=== PATIENT | female | born 1965 | race Caucasian/White ===

== ENCOUNTER 2016-12-19 12:17 | Emergency (ER) | payer MEDICAID ==
[~2016-12-19] VITALS: Ht 160 cm; Wt 90.7 kg
[2016-12-19 12:23] VITALS: BP 145/80
--- NOTE | 2016-12-19 14:30 | NUR ---
Patient ambulated to bed 07.
--- NOTE | 2016-12-19 14:32 | NUR ---
51F BIB SELF C/O RT SHOULDER PAIN, THROBBING, RADIATES TO RT HAND, 10/10 X LAST NIGHT; PT DENIES TRAUMA OR INJURY TO SITE; NO SWELLING OR DEFORMITIES NOTED TO SITE AT THIS TIME; RT CAP REFILL < 2 SECONDS, RT RADIAL PULSE PALPABLE, NO LOSS OF SENSATION TO RT ARM AT THIS TIME; PT A&OX4, PERRLA, BL LUNG SOUNDS CLEAR, RR EVEN/UNLABORED, SKIN IS WARM/DRY/INTACT AT THIS TIME; PT DENIES N/V/D AT THIS TIME; STEADY GAIT; PT RESTING IN BED W/ HOB ELEVATED AND IN LOWEST POSITION; POSITIONED FOR COMFORT; ER MD MADE AWARE OF STATUS. WILL CONTINUE TO MONITOR.
--- NOTE | 2016-12-19 15:12 | NUR ---
Dr. Lezama evaluating patient at bedside.
[2016-12-19] MEDS ORDERED: KETOROLAC 60 MG/2 ML VIAL IM ONE (15:20)
[2016-12-19 16:13] VITALS: BP 137/77
--- NOTE | 2016-12-19 16:13 | NUR ---
Patient discharged with v/s stable. Written and verbal after care instructions given and explained. Patient alert, oriented and verbalized understanding of instructions. Ambulatory with steady gait. All questions addressed prior to discharge. ID band removed. Patient advised to follow up with PMD. Rx of FLEXERIL 10MG TAB & DICLOFENAC SODIUM 75MG given. Patient educated on indication of medication including possible reaction and side effects. Opportunity to ask questions provided and answered.
== END 2016-12-19 16:13 | disposition home or self-care (01) ==
LOC: MED 12:17
DX: M75.01 Adhesive capsulitis of right shoulder (principal); R94.31 Abnormal electrocardiogram [ECG] [EKG]
CPT/HCPCS: 36415; 73060; 73090; 80053; 84484; 85025; 93005; 96372; 99285; J1885